=== PATIENT | male | born 1985 | race Caucasian/White ===

== ENCOUNTER → 2018-10-10 | Day surgery (SDC) | payer OTHER ==
--- NOTE | 2018-10-07 11:02 | Diagnostic Imaging Report ---
EXAMINATION: CHEST 2 VIEWS INDICATION: Pre-operative COMPARISON: None FINDINGS: TUBES and LINES: None. LUNGS: The lung volumes are normal. No focal consolidation or pulmonary edema. PLEURA: No pleural effusion or pneumothorax. HEART AND MEDIASTINUM: The cardiomediastinal silhouette is normal in size and contour. BONES AND SOFT TISSUES: No acute fracture or dislocation. UPPER ABDOMEN: No free air under the diaphragm. IMPRESSION: No focal pneumonia or pulmonary edema. Signed by: Maciej Hewitt MD on 10/07/2018 10:58 AM
[2018-10-07 11:03] LABS: INR 0.91; PROTHROMBIN TIME 12.7 seconds (11.9-14.5)
[2018-10-07 11:04] LABS: PARTIAL THROMBOPLASTIN TIME 29.7 seconds (23.8-35.5)
[2018-10-07 11:10] LABS: ALANINE AMINOTRANSFERASE 25 IU/L (0-55); ALBUMIN 3.7 g/dL (3.5-5.0); ALKALINE PHOSPHATASE 70 IU/L (40-150); ANION GAP 13.1 mmol/L (8-16); BLOOD UREA NITROGEN 7 mg/dL (7-26); BUN/CREATININE RATIO 9 (6-25); CALCIUM 9.3 mg/dL (8.4-10.2); CARBON DIOXIDE 24 mmol/L (22-29); CHLORIDE 105 mmol/L (98-107); CREATININE, SERUM 0.81 mg/dL (0.72-1.25); EST GLOMERULAR FILTRATION RATE > 60 ML/MIN (60-); GLUCOSE 108 mg/dL (74-118); POTASSIUM 4.1 mmol/L (3.5-5.1); SODIUM 138 mmol/L (136-145)
[2018-10-07 11:25] LABS: BASOPHILS # (AUTO) 0.1 (0.0-0.1); BASOPHILS % 0.9 % (0.0-1.0); EOSINOPHILS # (AUTO) 0.4 (0.0-0.4); EOSINOPHILS % 6.7 % (0.0-6.0); HEMATOCRIT 47.1 % (38.2-49.6); HEMOGLOBIN 15.4 g/dL (14.0-18.0); LYMPHOCYTES # (AUTO) 1.5 (1.0-3.2); LYMPHOCYTES % 27.7 % (18.0-39.1); MEAN CORPUSCULAR HEMOGLOBIN 32.2 pg (28-32); MEAN CORPUSCULAR HGB CONC 32.7 g/dL (31-35); MEAN CORPUSCULAR VOLUME 98.3 fL (81-99); MONOCYTES # (AUTO) 0.5 (0.2-0.8); MONOCYTES % 8.4 % (4.4-11.3); NEUTROPHILS % 55.9 % (38.7-80.0); PLATELET COUNT 202 x10e3/uL (140-360); RED BLOOD COUNT 4.79 x10e6/uL (4.3-5.7); RED CELL DISTRIBUTION WIDTH 12.4 % (11.7-14.4)
[~2018-10-10] MED LIST: ACETAMINOPHEN/CODEINE 300MG - 30MG TAB ONE; BACITRACIN ZINC 15 GM OINT ONE; BUPIVACAINE HCL 0.5% INJ 30 ML VIAL INJ ONE; CEFOXITIN 1GM/ D5W 50ML 50 ML IV ONE; DEXAMETHASONE SOD PHOS INJ 4 MG/ML VIAL ONE; FENTANYL CITRATE/PF 100MCG/2 ML INJ ONE; KETOROLAC TROMETHAMINE 30 MG/ML VIAL ONE; LIDOCAINE HCL 2% LOCAL INJ 5 ML SDV VIAL INJ ONE; MIDAZOLAM HCL 2 MG/2 ML VIAL ONE; ONDANSETRON HCL INJ 2MG/ML 2ML 2 MG/ML VIAL ONE; PROPOFOL IV EMULSION 10 MG/ML 20 ML VIAL ONE; QUETIAPINE FUM100 MG PO; SEVOFLURANE INHAL SOLN 250 ML PEN BTL ONE; TYLENOL WITH C1 EACH PO
--- OUTSIDE RECORDS SUMMARY | 2018-10-10 08:32 | XMS REPORT ---
Author [facility] Address Unknown Phone Unavailable Care Team Providers Care Nursing Tech Name Role Phone JENNIFER ROQUE Unavailable Unavailable Problems This patient has no known problems. Allergies, Adverse Reactions, Alerts This patient has no known allergies or adverse reactions. Medications This patient has no known medications. Results Test Description Test Time Test Comments Text Results Atomic Results Result Comments CHEST 2 VIEWS 2018-10-07 10:57:00 [place] [address] Patient Name: BONY PERALTA MR #: [id number] : 1985 Age/Sex: 33/M Req #: [id number] [facility] Physician: Ordered by: JENNIFER ROQUE MD Report #: [id number] Location: OR Room/Bed: Procedure: [id number] DX/CHEST 2 VIEWS Exam Date: 10/07/18 Exam Time: 1032 REPORT STATUS: Signed EXAMINATION: CHEST 2 VIEWS INDICATION: Pre-operative COMPARISON: None FINDINGS: TUBES and LINES: None. LUNGS: The lung volumes are normal. No focal consolidation or pulmonary edema. PLEURA: No pleural effusion or pneumothorax. HEART AND MEDIASTINUM: The cardiomediastinal silhouette is normal in size and contour. BONES AND SOFT TISSUES: No acute fracture or dislocation. UPPER ABDOMEN: No free air under the diaphragm. IMPRESSION: No focal pneumonia or pulmonary edema. Signed by: Sotero Hewitt MD on 10/07/2018 10:58 AM Dictated By: SOTERO HEWITT MD [id number] Transcribed By: MERA on 10/07/18 1058 COPY TO: JENNIFER ROQUE MD
--- NOTE | 2018-10-10 11:45 | Operative Report ---
DATE OF PROCEDURE: 10/10/2018 SURGEON: Krishna Mcmahon MD PREOPERATIVE DIAGNOSIS: Desired sterilization. POSTOPERATIVE DIAGNOSIS: Desired sterilization. OPERATION PERFORMED: Bilateral vasectomy. ANESTHESIA: General. INDICATIONS: This patient is a 33-year-old white male with three children, who does not want any more children nor does his want any more children. For further details, please refer to the history and physical. The procedure was done in following fashion. PROCEDURE IN DETAIL: The patient was taken to the operating room, placed under general anesthesia, dressed and draped with Betadine in supine position in the usual fashion. The left vas was mobilized beneath the skin and a vertical incision made over the vas using a scalpel. The vas was then mobilized with a combination of blunt and sharp dissection using vasectomy clamps. A hemostat was placed beneath the vas to further isolate the vas. Hemostats were then placed proximally and distally and a piece of vas was excised for pathological identification. Both severed ends of the vas were fulgurated with electrocautery and secured with stick ties of 3-0 chromic. The wound was then inspected for hemostasis. When hemostasis was seen to be good, the severance of the vas were returned to the scrotum. Electrocautery with the coagulation on 30 was used. A similar procedure was then performed on the right side. The right vas was mobilized beneath the skin. A vertical incision was made directly over the vas, the vas was mobilized with combination of blunt and sharp dissection using vasectomy clamps, hemostats were placed proximally and distally, a segment was excised for identification. Both severed ends of vas were fulgurated with electrocautery and secured with stick ties of 3-0 chromic. The wound was then inspected for hemostasis with electrocautery. The severed ends of the vas were then returned to the scrotum and the scrotum closed with interrupted 3-0 chromic. Once this was accomplished, I then injected both spermatic cords with 10 mL of 0.5% Marcaine. Triple antibiotic ointment and a scrotal support dressing were applied. The patient tolerated procedure well and left the operating room in good condition. He will go home on Tylenol No. 3 one p.o. q.6 hours p.r.n. pain, #28. No sex for two weeks. He can wash the wound with soap and water starting in the morning and he will have return appointment in two weeks. The patient's had been advised it will not be considered safe for unprotected sex until he has two consecutive postoperative semen specimens with no sperm in the ejaculate. Krishna Mcmahon MD SRA/MODL /[id number]
[2018-10-10 11:50] VITALS: BP 148/95
== END | disposition home or self-care (01) ==
LOC: OR 08:30
PROVIDERS: ATTEND Urology
DX: Z30.2 Encounter for sterilization (principal); Z01.810 Encounter for preprocedural cardiovascular examination; Z01.812 Encounter for preprocedural laboratory examination; Z01.811 Encounter for preprocedural respiratory examination; F17.210 Nicotine dependence, cigarettes, uncomplicated; G47.00 Insomnia, unspecified
CPT/HCPCS: 36415; 55250; 71046; 80053; 85025; 85610; 85730; 88302; 93005 ×2; J1100; J1885; J2001; J2250; J2405; J2704; J3010